=== PATIENT | male | born 1955 | race Caucasian/White ===

== ENCOUNTER 2016-04-08 09:24 | Inpatient (IN) | payer OTHER ==
[2016-04-02 12:57] VITALS: BMI 31.7
--- NOTE | 2016-04-08 09:52 | HP ---
Satellite [facility] - Chief Complaint Chief Complaint: left knee pain - Past Medical History Allergies/Adverse Reactions: Allergies Allergy/AdvReac Type Severity Reaction Status Date / Time No Known Allergies Allergy Verified 04/02/16 12:37 - Current Medications Current Medications: Home Medications Medication Instructions Recorded Losartan 50Mg/Hctz 12.5MG [Hyzaar 1 tab PO DAILY #0 tablet 12/10/12 -] Meloxicam [Mobic -] 15 mg PO DAILY PRN #0 tablet 12/10/12 Methotrexate [Mexate -] 8 tab PO WEEKLY #0 tablet 12/10/12 Atenolol [Tenormin -] 25 mg PO DAILY 04/02/16 Atorvastatin Ca [Lipitor] 20 mg PO DAILY 04/02/16 Folic Acid 1 mg PO DAILY 04/02/16 Multivitamin-Minerals No.55 1 each PO DAILY 04/02/16 [Centrum Flavor Burst Adult] Pantoprazole Sodium [Protonix] 40 mg PO DAILY 04/02/16 Satellite Physical Exam - Physical Examination General Appearance: Well Nourished, Well Developed, Alert & Oriented x3 ENT: Clear Lung: Normal air movement Heart: Regular rate & rhythm Extremities: Other (left knee- + swelling, +ttp, decr rom, nvi xrays show severe tricompartmental djd) Neurological: Intact, Alert, Oriented Satellite Impression/Plan - Impression/Plan Impression: left knee djd Operative Procedure: left ankit tkr Date to be Performed: 04/08/16
[2016-04-08] MEDS ORDERED: TRANEXAMIC ACID 1000 MG/10 ML VIAL IVPUSH ONE (12:55)
[2016-04-08] MEDS ORDERED: CEFAZOLIN 2 GM in DEXTROSE 5%-WATER - 50 ML IVPB ONE (12:55)
[2016-04-08] MEDS: GABAPENTIN 300 MG CAPSULE (FP) PO ONE (13:55)
[2016-04-08] MEDS: CELECOXIB 200 MG CAPSULE PO ONE (13:55)
[2016-04-08] MEDS: oxyCODONE HCL 10 MG SUSTAINED ACTING TABLET PO ONE (13:55)
[2016-04-08] MEDS ORDERED: GUM MASTIC/STORAX/MSAL/ALCOHOL 1 DRP DROPSBTL MC ONE (13:58)
[2016-04-08] MEDS ORDERED: ROPIVACAINE HCL 0.5% 30ML VIAL ONE (14:00)
[2016-04-08] MEDS ORDERED: DEXAMETHASONE SOD PHOSPHATE/PF 10 MG/ML SDV ONE (14:01)
[2016-04-08] MEDS ORDERED: MIDAZOLAM HCL 2 MG/2 ML SINGLE DOSE VIAL ONE (14:18)
[2016-04-08] MEDS ORDERED: GELATIN, ABSORBABLE 100 EACH SPONGE TP ONE (14:28)
[2016-04-08] MEDS ORDERED: THROMBIN (BOVINE) 5,000 UNIT VIAL TP ONE (14:28)
[2016-04-08] MEDS ORDERED: ROPIVICAINE 0.2%/MORPH PF/KETOROLAC - 51ML DISP.SYRINGE IA ONE (14:28)
[2016-04-08] MEDS ORDERED: ceFAZolin SODIUM 1 GM VIAL ONE ×2 (14:28→15:30)
[2016-04-08] MEDS ORDERED: VANCOMYCIN 1,000 MG VIAL (RESTRICTED TO ID ONLY) ONE (14:47)
[2016-04-08] MEDS ORDERED: PROPOFOL 20 ML ONE ×3 (15:26→15:35)
[2016-04-08] MEDS ORDERED: TRANEXAMIC ACID 1000 MG/10 ML VIAL ONE (15:31)
[2016-04-08] MEDS ORDERED: ePHEDrine SULFATE 50 MG/1 ML AMPULE ONE (15:48)
[2016-04-08] MEDS ORDERED: PHENYLEPHRINE HCL 10 MG/1 ML SINGLE DOSE VIAL ONE (15:49)
[2016-04-08] MEDS ORDERED: MAGNESIUM HYDROX 2400MG/30ML ORAL SUSPENSION 30 ML CUP PO PRN (17:22)
[2016-04-08] MEDS ORDERED: MAG HYDROX/AL HYDROX/SIMETH 30 ML UNIT-DOSE CUP PO PRN (17:22)
[2016-04-08] MEDS ORDERED: ONDANSETRON 4 MG/2 ML VIAL IVPB PRN (17:22)
--- NOTE | 2016-04-08 17:26 | OP ---
Operative Note - Note: Operative Date: 04/08/16 (kiana) Pre-Operative Diagnosis: right knee djd Operation: right ankit tkr Post-Operative Diagnosis: Same as Pre-op Surgeon: Raad Xiong Commercial Credit Lead: Kings Crandall Anesthesiologist/EMULSION COATER: Elizabeth Bowser Anesthesia: Spinal, Local Specimens Removed: bone fragments Estimated Blood Loss (mls): 10 (tourniquet) Operative Report Dictated: Yes
[2016-04-08] MEDS ORDERED: LACTATED RINGERS SOLUTION 1,000 ML IV SCH (17:30)
[2016-04-08] MEDS ORDERED: oxyCODONE HCL 5 MG TABLET PO PRN (17:41)
[2016-04-08] MEDS ORDERED: ROPIVACAINE 0.2% 400ML 400 ML ML NR ONE (17:41)
[2016-04-08] MEDS: ACETAMINOPHEN 325 MG TABLET (FP) PO SCH (17:58)
[2016-04-08] MEDS: SENNOSIDES/DOCUSATE COMBO (SENNA PLUS) TABLET (UD) PO SCH (22:48)
[2016-04-08] MEDS: oxyCODONE HCL 10 MG SUSTAINED ACTING TABLET PO SCH (22:49)
[2016-04-08] MEDS: CEFAZOLIN 2 GM/D5W 50 ML IVPB SCH (22:53)
[2016-04-09] MEDS: ACETAMINOPHEN 325 MG TABLET (FP) PO SCH ×5 (00:37→17:50)
[2016-04-09] MEDS: CEFAZOLIN 2 GM/D5W 50 ML IVPB SCH (02:56)
[2016-04-09] MEDS ORDERED: CEFAZOLIN 2 GM/D5W 50 ML IVPB ONE (07:00)
--- NOTE | 2016-04-09 07:13 | OP ---
DATE OF OPERATION: 04/08/2016 PREOPERATIVE DIAGNOSIS: Degenerative joint disease, left knee. POSTOPERATIVE DIAGNOSIS: Degenerative joint disease, left knee. PROCEDURE: Left total knee replacement with robotic-assisted navigation (MAKOplasty). SURGICAL ATTENDING: Raad Xiong MD PROPRIETARY TRADER: CAROLINE Flowers ANESTHESIA: Spinal and regional. CLOSURE: Triathlon total knee system with No. 5 femur, No. 6 tibia, 13 mm polyethylene, No. 35 patella, No. 1 Vicryl to fascia, 0 and 2-0 subcutaneous, 3-0 Monocryl subcuticular with skin glue for skin ESTIMATED BLOOD LOSS: Negligible. TOTAL TOURNIQUET TIME: Approximately 80 minutes. COMPLICATIONS: None. CONDITION: To recovery room in stable condition. PROCEDURE: Patient was taken to the operating room on April 08, 2016. Spinal and region anesthesia were administered by the anesthesiologist. IV Kefzol and TXA were administered prophylactically prior to the case. Well-padded pneumatic tourniquet was placed on the left proximal thigh. The left lower extremity was prepped and draped in the usual sterile fashion. The standard midline incision was incised down to the level of the extensor mechanism. After the leg was exsanguinated with an Esmarch bandage, tourniquet was inflated to 275 mmHg. Sufficient flaps were done medially and laterally to perform the procedure. A medial parapatellar arthrotomy was then performed leaving a cuff of tissue on the patella for later closure. The patella was inverted and the knee was flexed up 90 degrees. Subperiosteal dissection was done on the anterior medial proximal tibia until the knee was able to be brought forward. This was facilitated by taking the ACL, PCL, and the menisci. Check points were placed on both the femur and the tibia. Two pins were drilled through the small stab incisions in the tibia and two in the femur about 1 handbreadth below the tibial tubercle and above the patella respectively. To these pins were attached the navigation arrays. The knee was then registered with the navigation device with center of rotation of the hip, medial and lateral malleoli, and multiple points on both the femur and the tibia. Both registrations were confirmed by popping the bubbles. Circumferential debridement of osteophytes on both the femur and the tibia was performed. The knee was taken in extension and 90 degrees of flexion, and attention medially-laterally to see the gaps and correctability. The virtual position of the components was mobilized and manipulated to ensure equal gaps in both the femur and tibia in both flexion and extension. The robot was then brought into the field and registered. The cuts on the proximal tibia and all the cuts on the distal femur were then performed using the robot. A No. 5 was for the femur and No. 6 for the tibia. A single-use instrumentation was used to cut box for the femur. Trial reduction with a 5 femur and a 6 tibia with a 13 insert achieved excellent stability in both flexion and extension with equal tensioning seen (a) clinically and (b) confirmed by the navigation device. The tibia was clipped into place using chubby pins. The appropriate position of the tibial tray with the appropriate external rotation was confirmed both by direct visualization in relation to the tibial tubercle as well as with placing the green probe on the virtual slits on the virtual plan confirming that the trial was in the identical position. The patella was then calibrated and cut the appropriate depth with a micro-oscillating saw. A 35 lollypop was used to drill the lug holes in the patella. Trial patellar component was applied. The knee was taken through a range of motion, found to have excellent stability in flexion and extension with excellent tracking of the patella. The trial components were removed. The keel was punched in the tibia. The knee was post antibiotic irrigated. The real components were then cemented in using modern generation cement techniques with antibiotic cement. After the cement was hard, the knee was thoroughly inspected to remove all excess cement. A 13 polyethylene was then clipped into place. Range of motion, stability, and tracking were as described earlier. The knee was thoroughly irrigated. The check points were removed as were the arrays, and the pins in the tibia and the femur, they were pulse irrigated, as well. The medial parapatellar arthrotomy was then closed using No. 1 Vicryl suture. Prior to closure 1 g of vancomycin powder was sprinkled into the knee joint. Post closure of the medial parapatellar arthrotomy, the knee was taken trough a range of motion, found to have excellent tracking, again with no undue tension on the repair and good tracking of the patella. The subcutaneous was then closed with 0 and 2-0 Vicryl, and 3-0 Monocryl subcuticular to skin with skin glue, and 4-0 undyed Vicryl for pin sites. A sterile Aquacel dressing followed by Hartman dressing was applied. Tourniquet was deflated. Total tourniquet time was approximately 80 minutes. No complications. Ajay [id number]
--- NOTE | 2016-04-09 08:03 | PN ---
Progress Note (short form) - Note Progress Note: Ortho Pt seen and examined s/p left ankit tkr pod #1 Selected Entries 04/09/16 06:35 Temperature 98.0 F Pulse Rate 97 H Respiratory 19 Rate Blood Pressure 118/74 Laboratory Tests 04/09/16 07:00 WBC Pending Hgb Pending Hct Pending Plt Count Pending dressing c/d/i, calf soft, nt rom 0-50, nvi a/p PT dvt ppx pain control d/c home tomorrow if stable
[2016-04-09 08:06] LABS: MCHC 34.4 g/dl (32.0-35.9); MEAN CELL VOLUME 95.9 fl (80-96); MEAN PLT VOLUME 7.7 fl (7.5-11.1); PLATELET COUNT 196 K/MM3 (134-434); RDW 12.8 % (11.9-15.9)
[2016-04-09 08:21] LABS: CALCIUM 9.3 mg/dl (8.4-10.2); CREATININE 1.3 mg/dl (0.6-1.3)
[2016-04-09] MEDS: ASPIRIN 325 MG TABLET PO SCH (08:24)
[2016-04-09] MEDS: oxyCODONE HCL 5 MG TABLET PO PRN (08:24)
[2016-04-09] MEDS: ATENOLOL 25 MG TABLET (FP) PO SCH (09:06)
[2016-04-09] MEDS: ATORVASTATIN CA 20 MG TABLET (FP) PO SCH (09:06)
[2016-04-09] MEDS: LOSARTAN 50MG/HCTZ 12.5MG 1 TAB (FP) PO SCH (09:06)
[2016-04-09] MEDS: MULTIVITAMINS (DAILY MVI) TABLET (FP) PO SCH (09:06)
[2016-04-09] MEDS: PANTOPRAZOLE 40 MG TABLET (FP) PO SCH (09:06)
[2016-04-09] MEDS: SENNOSIDES/DOCUSATE COMBO (SENNA PLUS) TABLET (UD) PO SCH ×2 (09:07→21:33)
[2016-04-09] MEDS: oxyCODONE HCL 10 MG SUSTAINED ACTING TABLET PO SCH ×2 (09:11→21:33)
[2016-04-09] MEDS: CELECOXIB 200 MG CAPSULE PO ONE (11:10)
[2016-04-09] MEDS: GABAPENTIN 300 MG CAPSULE (FP) PO ONE (11:11)
[2016-04-09] MEDS: oxyCODONE HCL 10 MG SUSTAINED ACTING TABLET PO ONE (11:11)
--- NOTE | 2016-04-09 13:56 | PN ---
Progress Note, Physician Chief Complaint: s/p total knee replacement History of Present Illness: under spinal anesthesia, adductor canal catheter in place - Current Medication List Current Medications: Active Medications Acetaminophen (Tylenol -) 650 mg PO Q6HPO [facility] Stop: 04/11/16 17:59 Last Admin: 04/09/16 12:54 Dose: 650 mg Al Hydroxide/Mg Hydroxide (Mylanta Oral Suspension -) 30 ml PO Q4H PRN PRN Reason: DYSPEPSIA Aspirin (Asa -) 325 mg PO DAILY@0800 [facility] Last Admin: 04/09/16 08:24 Dose: 325 mg Atenolol (Tenormin -) 25 mg PO DAILY [facility] Last Admin: 04/09/16 09:06 Dose: 25 mg Atorvastatin Calcium (Lipitor -) 20 mg PO DAILY [facility] Last Admin: 04/09/16 09:06 Dose: 20 mg Fentanyl (Sublimaze Injection -) 50 mcg IVPUSH [id number] PRN PRN Reason: PAIN Stop: 04/11/16 17:41 HCTZ/Losartan Potassium (Hyzaar -) 1 tab PO DAILY [facility] Last Admin: 04/09/16 09:06 Dose: 1 tab Magnesium Hydroxide (Milk Of Magnesia -) 30 ml PO PRN PRN PRN Reason: CONSTIPATION Multivitamins/Minerals/Vitamin C (Tab-A-Vit -) 1 tab PO DAILY [facility] Last Admin: 04/09/16 09:06 Dose: 1 tab Ondansetron HCl (Zofran Injection) 4 mg IVPB Q6H PRN PRN Reason: NAUSEA Last Admin: 04/09/16 13:48 Dose: 4 mg Oxycodone HCl (Oxycontin -) 10 mg PO BID [facility] Stop: 04/11/16 17:43 Last Admin: 04/09/16 09:11 Dose: 10 mg Oxycodone HCl (Roxicodone -) 10 mg PO Q4H PRN PRN Reason: PAIN Stop: 04/11/16 17:42 Last Admin: 04/09/16 08:24 Dose: 10 mg Oxycodone HCl (Roxicodone -) 5 mg PO Q4H PRN PRN Reason: PAIN Stop: 04/11/16 17:42 Pantoprazole Sodium (Protonix -) 40 mg PO DAILY [facility] Last Admin: 04/09/16 09:06 Dose: 40 mg Senna/Docusate Sodium (Pericolace -) 1 tablet PO BID [facility] Last Admin: 04/09/16 09:07 Dose: 1 tablet - Objective Vital Signs: Vital Signs Temperature 98.0 F 04/09/16 06:35 Pulse Rate 97 H 04/09/16 06:35 Respiratory Rate 19 04/09/16 06:35 Blood Pressure 118/74 04/09/16 06:35 O2 Sat by Pulse Oximetry (%) 93 L 04/09/16 06:35 Constitutional: Yes: Well Nourished Cardiovascular: Yes: WNL Respiratory: Yes: WNL Gastrointestinal: Yes: WNL Wound/Incision: Yes: Clean/Dry Neurological: Yes: WNL Labs: CBC, BMP 04/09/16 07:00 04/09/16 07:00 Assessment/Plan Patient doing well, pain controlled, some nausea but patient says that is normal for him, no adverse effect of anesthetic, will continue adductor canal catheter until discharge.
[2016-04-10] MEDS: ACETAMINOPHEN 325 MG TABLET (FP) PO SCH ×3 (01:17→12:23)
[2016-04-10 06:37] VITALS: BP 120/72; PULSE 87; TEMP 98.6
--- NOTE | 2016-04-10 08:02 | PN ---
Progress Note (short form) - Note Progress Note: 60M POD2 s/p left TKR under spinal anesthetic and continuous adductor canal catheter doing well. Adductor canal catheter d/c'd today, tip intact, site clean. Pain is well controlled, sensory and motor function intact in both lower extremities.
[2016-04-10] MEDS: oxyCODONE HCL 5 MG TABLET PO PRN (08:23)
[2016-04-10] MEDS: ASPIRIN 325 MG TABLET PO SCH (08:23)
[2016-04-10 08:45] LABS: MCHC 33.5 g/dl (32.0-35.9); MEAN CELL VOLUME 95.5 fl (80-96); MEAN PLT VOLUME 7.9 fl (7.5-11.1); PLATELET COUNT 191 K/MM3 (134-434); WHITE BLOOD COUNT 10.5 K/mm3 (4.0-10.0)
[2016-04-10] MEDS: LOSARTAN 50MG/HCTZ 12.5MG 1 TAB (FP) PO SCH (09:15)
[2016-04-10] MEDS: PANTOPRAZOLE 40 MG TABLET (FP) PO SCH (09:15)
[2016-04-10] MEDS: ATORVASTATIN CA 20 MG TABLET (FP) PO SCH (09:15)
[2016-04-10] MEDS: ATENOLOL 25 MG TABLET (FP) PO SCH (09:15)
[2016-04-10] MEDS: MULTIVITAMINS (DAILY MVI) TABLET (FP) PO SCH (09:15)
[2016-04-10] MEDS: SENNOSIDES/DOCUSATE COMBO (SENNA PLUS) TABLET (UD) PO SCH (09:15)
[2016-04-10] MEDS: oxyCODONE HCL 10 MG SUSTAINED ACTING TABLET PO SCH (09:16)
--- NOTE | 2016-04-10 09:30 | PN ---
Progress Note (short form) - Note Progress Note: Ortho Pt seen and examined s/p left ankit tkr pod #2 Selected Entries 04/10/16 05:00 Temperature 98.6 F Pulse Rate 87 Respiratory 19 Rate Blood Pressure 120/72 Laboratory Tests 04/10/16 07:55 WBC 10.5 H Hgb 13.7 Hct 40.9 Plt Count 191 dressing c/d/i, calf soft, nt rom 0-80, nvi a/p PT dvt ppx pain control d/c home today f/u in 1 week
--- NOTE | 2016-04-10 09:31 | DS ---
Physical Examination Vital Signs: Vital Signs Temperature 98.6 F 04/10/16 05:00 Pulse Rate 87 04/10/16 05:00 Respiratory Rate 19 04/10/16 05:00 Blood Pressure 120/72 04/10/16 05:00 O2 Sat by Pulse Oximetry (%) 93 L 04/10/16 05:00 Labs: CBC, BMP 04/10/16 07:55 04/09/16 07:00 Discharge Summary Reason For Visit: OSTEOARTHRITIS Procedures: Principal: s/p left ankit tkr Hospital Course: admitted for elective left ankit tkr, uneventful post-op, stable for d/c Condition: Good - Instructions Diet, Activity, Other Instructions: Post-op Instructions-Total Knee Replacement Call the office for a follow-up appointment in 1 week - [phone] Aspirin 325mg daily for 6 weeks. Pain medication was sent into your pharmacy. Apply Graduated Compression Stockings (TEDs) to both lower extremities- remove daily for hygiene ONLY Apply Sequential Compression Device (SCDs) to both Lower extremities remove for PT and hygiene ONLY Apply cold packs to affected area for 15 minutes every 2 hours. Physical Therapist will come to your home for the first 5 days. You will be set up with outpatient PT at your first post-operative visit. Patient may ambulate as tolerated-encourage self care (at least every 2-3 hours while awake) with walker or cane Maintain Aquacel (waterproof) dressing to operative wound (will be removed by surgeon at first office visit) Shower with Aquacel dressing in place-if Aquacel integrity compromised, remove and apply dry sterile dressing and notify Orthopedist. DO NOT SHOWER unless Orthopedists approves without Aquacel dressing CONTACT THE OFFICE FOR ANY CHANGE IN YOUR CONDITION (for example-fever greater than 102 degrees,excessive bleeding from operative site, purulent drainage, severe swelling or pain) GO TO THE EMERGENCY ROOM IF THERE IS A MEDICAL EMERGENCY Knee Precautions: * Keep a rolled towel under affected heel while in bed or chair (to keep knee in extension) * Keep affected leg elevated except during mealtimes * DO NOT PLACE PILLOW UNDER AFFECTED KNEE * If you have any questions, please do not hesitate to call the office - . Referrals: Raad Xiong MD [Staff Physician] - Disposition: VNS/HOME HEALTH CARE - Home Medications Comprehensive Discharge Medication List: Ambulatory Orders Losartan 50Mg/Hctz 12.5MG [Hyzaar -] 1 tab PO DAILY #0 tablet 12/10/12 Meloxicam [Mobic -] 15 mg PO DAILY PRN #0 tablet 12/10/12 Methotrexate [Mexate -] 8 tab PO WEEKLY #0 tablet 12/10/12 Atenolol [Tenormin -] 25 mg PO DAILY 04/02/16 Atorvastatin Ca [Lipitor] 20 mg PO DAILY 04/02/16 Folic Acid 1 mg PO DAILY 04/02/16 Multivitamin-Minerals No.55 [Centrum Flavor Burst Adult] 1 each PO DAILY Pantoprazole Sodium [Protonix] 40 mg PO HS 04/02/16 Aspirin [ASA -] 325 mg PO DAILY@0800 tablet 04/08/16 Oxycodone HCl/Acetaminophen [Percocet 5-325 mg Tablet -] 1 - 2 tab PO Q6H #50 tab MDD 8 04/08/16
--- NOTE | 2016-04-10 16:19 | PATH ---
Surgical Pathology Report Patient Name: WAQAS KELSEY Med. Rec. #: [id number] /Age/Gender: 1955 (Age: 60) / M Account: [id number] Location: [facility] MED-SURG Taken: 04/08/2016 Received: 04/08/2016 Reported: 04/10/2016 Physicians: Raad Xiong M.D. Specimen(s) Received BONE LEFT KNEE Clinical History Left knee osteoarthritis Final Diagnosis BONE AND SOFT TISSUE, LEFT KNEE, REPLACEMENT: DEGENERATIVE JOINT DISEASE. Electronically Signed Santy Daly M.D. Gross Description Received in formalin, labeled "bone left knee," is an 8.5 x 6.5 x 2.0 cm tibial plateau with minimal attached soft tissue. The articular surface displays a 3.8 cm greatest dimension area of eburnation. The remaining articular surface is nichols-yellow and focally granular. The underlying trabecular bone is yellow and hard. Also received within the same container is a 4.3 x 2.1 x 2.0 cm irregular portion of bone. A Contestant Coordinator section is submitted in one cassette, following decalcification. 04/09/201604/09/2016
== END 2016-04-10 16:05 | disposition home health service (06) | DRG 470 ==
LOC: FM/S 11:57
PROVIDERS: ADMIT Orthopaedic Surgery; ATTEND Orthopaedic Surgery
PROC: 8E0Y0CZ Robotic Assisted Procedure of Lower Extremity, Open Approach (ICD-10-PCS; 2016-04-08)
PROC: 0SRD0J9 Replacement of Left Knee Joint with Synthetic Substitute, Cemented, Open Approach (ICD-10-PCS; principal; 2016-04-08 14:41)
DX: M17.12 Unilateral primary osteoarthritis, left knee (principal); K21.9 Gastro-esophageal reflux disease without esophagitis; E66.8 Other obesity; Z68.31 Body mass index [BMI] 31.0-31.9, adult
CPT/HCPCS: 36415; 73560-TC-LT; 80048; 85027; 88305-TC; 88311-TC; 97116-GP; 97162-PG